=== PATIENT | female | born 1990 | race Two or more races ===

== ENCOUNTER 2019-05-17 21:26 | Inpatient (IN) | payer OTHER ==
[~2019-05-17] VITALS: Ht 165.1 cm; Wt 99.8 kg
== END 2019-05-18 14:18 | disposition left against medical advice (07) | DRG 761 ==
LOC: ER 21:26 → OB/GYN 05-18 10:25
PROVIDERS: ADMIT Obstetrics & Gynecology
PROC: BU46ZZZ Ultrasonography of Uterus (ICD-10-PCS; principal; 2019-05-18)
DX: D25.1 Intramural leiomyoma of uterus (principal); D27.1 Benign neoplasm of left ovary; R19.09 Other intra-abdominal and pelvic swelling, mass and lump